=== PATIENT | male | born 1960 | race Caucasian/White ===

== ENCOUNTER 2017-05-24 14:41 | Emergency (ER) | payer SELFPAY ==
[~2017-05-24] VITALS: Ht 165.1 cm; Wt 68.0 kg
[2017-05-24 14:44] VITALS: BP 170/110; PULSE 116; RESP 14; TEMP 98.8; O2SAT 98
--- NOTE | 2017-05-24 15:30 | PD ---
Physical Exam Time Seen by Provider: 15:26 Narrative 57-year-old male presents with complaint of bilateral hip pain and bilateral lower extremity pain 6 weeks after a fall. Ambulatory in triage. Patient seen in triage. Vital signs reviewed. Patient awaiting bed placement. Data Data Last Documented VS Vital Signs Date Time Temp Pulse Resp B/P (MAP) Pulse Ox O2 Delivery O2 Flow Rate FiO2 05/24/17 14:44 98.8 116 14 170/110 (130) 98 MDM Supervised Visit with SHREE: Caryn Li May 24, 2017 15:30
[2017-05-24] MEDS ORDERED: LIDO1PAD52 TOPICAL (15:41)
[2017-05-24] MEDS ORDERED: oxyCODONE/ACETAMINOPHEN 5 MG/325 MG TAB PO ONE (15:45)
[2017-05-24] MEDS ORDERED: LORazepam 2 MG TAB PO ONE (15:45)
--- NOTE | 2017-05-24 15:51 | PD ---
HPI . Pain in both hips, numbness and left leg Chief Complaint: Musculoskeletal Complaint Time Seen by Provider: 15:32 Travel History International Travel<30 days: No Contact w/Intl Traveler<30days: No Traveled to known affect area: No History of Present Illness HPI This patient presents for evaluation of an injury which was sustained about 6 weeks ago. He states that he fell approximately 8 feet and landed first on his left foot and then on his entire left side. He states that he landed on a [place] slope. He subsequently developed pain in his low back. He states that he initially attributed the pain to the trauma but the pain persisted so he presented himself to an urgent care facility. He states that he was treated with steroids, a pain pill and a muscle relaxant pill. He states that he finished those medications but that his symptoms have gotten worse rather than better. He subsequently presents to us today for evaluation. He states that the pain is really in his hips and that he has severe right hip pain first thing in the morning that prevents him from standing on his leg when he first gets out of bed. That pain improves as he moves around. However, he has a numb, burning pain running down the back of his left leg. He states that that pain does not get better during the course of the day. His pain is exacerbated by movement. He states that his pain while lying flat is an 8/10 is a 10/10 with any sort of movement. He reports that his only problem with urination and defecation is pain. He states that he cannot stand to urinate and that defecation causes increased pain in his hips. PFSH Past Medical History Kidney Stones: Yes Tetanus Vaccination: Never Vaccinated Influenza Vaccination: No Past Surgical History Surgical History: No Previous Surgery Social History Alcohol Use: Yes (OCCASIONALLY) Tobacco Use: Yes (1 PPD) Substance Use: Yes (MARIJUANA RARELY) Allergies-Medications (Allergen,Severity, Reaction): Coded Allergies: No Known Allergies (Unverified , 05/24/17) Reported Meds & Prescriptions Reported Meds & Active Scripts Active Reported Lidocaine Patch 12 HR (Lidocaine) 5 % Patch 1 Patch TOPICAL DAILY Remove patch after 12 hours Review of Systems Except as stated in HPI: all other systems reviewed are Neg General / Constitutional: No: Fever, Chills Gastrointestinal: No: Changes in Bowel Habits Genitourinary: No: Incontinence Musculoskeletal: Positive: Pain Neurologic: Positive: Weakness (bilateral hip pain right leg weakness.), Paresthesia (left leg numbness.) Physical Exam Narrative GENERAL: The patient presents ambulatory. No acute distress. SKIN: warm/dry. No rashes. HEAD: Normocephalic. Atraumatic. EYES: Pupils equal and round. No scleral icterus. No injection or drainage. ENT: No nasal bleeding or discharge. Mucous membranes pink and moist. NECK: Trachea midline. Full range of motion without pain.. CARDIOVASCULAR: Regular rate and rhythm. RESPIRATORY: No accessory muscle use. Nonlabored respirations. MUSCULOSKELETAL: No obvious deformities. No tenderness to percussion along the lumbar spine. No pain with log rolling of the hips. Straight leg raise bilaterally causes low back pain/hip pain. NEUROLOGICAL: Awake and alert. No obvious cranial nerve deficits. Motor grossly within normal limits. Normal speech. PSYCHIATRIC: Appropriate mood and affect; insight and judgment normal. Data Data Last Documented VS Vital Signs Date Time Temp Pulse Resp B/P (MAP) Pulse Ox O2 Delivery O2 Flow Rate FiO2 05/24/17 14:44 98.8 116 14 170/110 (130) 98 Orders Orders Mri L Spine W/O Contrast (05/24/17 15:37) Oxycodone-Acetamin 5-325 Mg (Percocet (05/24/17 15:45) Lorazepam (Ativan) (05/24/17 15:45) Pelvis, Ap Only (Routine) (05/24/17 15:40) MDM Medical Decision Making Medical Screen Exam Complete: Yes Emergency Medical Condition: Yes Differential Diagnosis Differential diagnosis of back injury includes but is not limited to contusion, muscle strain, ligamentous strain, compression fracture, spinous process fracture Narrative Course Patient presents for evaluation of injuries which was sustained about 6 weeks ago. He has what sounds like radiculopathy of the left lower extremity. He is also complaining with some weakness in the right lower extremity but it sounds like that that is probably more related to pain in his hip. I have ordered an MRI of his back as well as plain films of his pelvis. The patient has requested no needles. I have ordered Percocet for pain and Ativan for spasm. Pelvic x-ray is negative for acute process. The pelvic x-ray was independently viewed by me. His care is being turned over to Dr. Ramachandran at this time pending his MRI. Diagnosis Primary Impression: Bilateral hip pain Additional Impression: Radiculopathy Qualified Codes: M54.16 - Radiculopathy, lumbar region Patient Instructions: Narcotic given in the ED Condition: Stable Madison Gamble MD May 24, 2017 15:51
--- NOTE | 2017-05-24 16:19 | RADRPT ---
EXAM DATE/TIME: 05/24/2017 15:44 [facility] COMPARISON: No previous studies available for comparison. INDICATIONS : Pelvis pain post fall 4 weeks ago MEDICAL HISTORY : None. SURGICAL HISTORY : None. ENCOUNTER: Initial ACUITY: 1 month PAIN SCORE: 5/10 LOCATION: Pelvis FINDINGS: A single frontal view of the pelvis demonstrates no evidence of fracture. The bony pelvic ring is in tact. Bony mineralization is normal. The soft tissues are intact. CONCLUSION: Unremarkable examination of the pelvis. Tim Wiggins MD on May 24, 2017 at 16:18 Board Certified Radiologist. This report was verified electronically.
--- NOTE | 2017-05-24 16:52 | RADRPT ---
EXAM DATE/TIME: 05/24/2017 16:11 [facility] COMPARISON: No previous studies available for comparison. INDICATIONS : Fall/low back pain. MEDICAL HISTORY : None. SURGICAL HISTORY : None. ENCOUNTER: Initial ACUITY: 1 day PAIN SCORE: 5/10 LOCATION: Paraspinal TECHNIQUE: Multiplanar multisequence MRI of the lumbar spine was performed without contrast. FINDINGS: The most caudal appearing lumbar vertebra is numbered as L5. VERTEBRAE: Homogeneous signal. Normal alignment. CONUS: Normal level and configuration. T12-L1: The thecal sac has a normal diameter. No evidence of disc bulge or protrusion. The neural foramina are patent bilaterally. L1-L2: The thecal sac has a normal diameter. No evidence of disc bulge or protrusion. The neural foramina are patent bilaterally. L2-L3: The thecal sac has a normal diameter. Disc space is desiccated with a minimal central disc bulge.. T he neural foramina are patent bilaterally. L3-L4: The thecal sac has a normal diameter. No evidence of disc bulge or protrusion. The neural foramina are patent bilaterally. Desiccation of the disc. L4-L5: Moderate to large central disc protrusion yielding effacement of the thecal sac and localiz spinal st enosis without neural foraminal encroachment. L5-S1: Disc space is desiccated minimally narrowed with a minimal central to right paracentral disc bulge wi thout encroachment on neural foramina or spinal stenosis CONCLUSION: Multilevel degenerative disc disease. Minimal central disc bulge L2-3 and minimal right paracentral d isc bulge L5-S1. Large central disc bulge at L4-5 with localiz spinal stenosis. Tim Wiggins MD on May 24, 2017 at 16:46 Board Certified Radiologist. This report was verified electronically.
[2017-05-24] MEDS ORDERED: PERC5TAB12 PO (17:01)
[2017-05-24] MEDS ORDERED: LORA-475 PO (17:01)
== END 2017-05-24 17:32 | disposition home or self-care (01) ==
LOC: NEPD 14:41
DX: M25.551 Pain in right hip (principal); M25.562 Pain in left knee; M54.16 Radiculopathy, lumbar region; M62.830 Muscle spasm of back; M51.36 Other intervertebral disc degeneration, lumbar region; R30.0 Dysuria; F17.200 Nicotine dependence, unspecified, uncomplicated; Z87.442 Personal history of urinary calculi
CPT/HCPCS: 72148; 72170; 99284